=== PATIENT | male | born 1990 | race Two or more races ===

== ENCOUNTER 2017-06-02 11:14 | Emergency (ER) | payer OTHER ==
[~2017-06-02] VITALS: Ht 172.7 cm; Wt 81.6 kg
[2017-06-02 12:00] VITALS: BP 131/74
[2017-06-02 12:08] VITALS: BP 132/88
--- NOTE | 2017-06-04 06:59 | Emergency Room Report ---
History of Present Illness General Chief Complaint: General Complaint Source: Patient Present Illness HPI 26-year-old male presents ED for evaluation. Patient states that there is irritation to his penis times one day. Patient states he put toothpaste on to "clean it" because it was dirty. patient notes some redness and irritation. Denies pain. Denies dysuria or discharge. Patient also complaining of pain to his left ankle. States he twisted his ankle a few days ago. States he had an x -ray done which was negative and another hospital. Patient is able to bear weight but notes pain. Denies received Jas wrap or crutches he claims. Pain is a 5/10, throbbing, nonradiating. Worse with walking. Patient also complaining of muscle aches diffusely. Patient is taking Zyprexa and states he' s had the muscle aches since starting the medication some time ago. No other aggravating relieving factors. Denies any other system symptoms Allergies: Coded Allergies: No Known Allergies (Unverified , 06/02/17) Patient History Past Medical History: psych hx Past Surgical History: none Pertinent Family History: none Social History: Denies: smoking, alcohol use, drug use Immunizations: UTD Reviewed Nursing Documentation: PMH: Agreed, PSxH: Agreed Nursing Documentation-PMH Past Medical History: No History, Except For History Of Psychiatric Problem: Yes - BIPOLAR, SCHEZOPHERINIA Review of Systems All Other Systems: negative except mentioned in HPI Physical Exam Vital Signs Date Time Temp Pulse Resp B/P (MAP) Pulse Ox O2 Delivery O2 Flow Rate FiO2 06/02/17 11:30 97.5 65 20 131/74 98 Room Air Sp02 EP Interpretation: reviewed, normal General Appearance: no apparent distress, alert, GCS 15, non-toxic Head: normocephalic, atraumatic Eyes: bilateral eye normal inspection, bilateral eye PERRL ENT: hearing grossly normal, normal pharynx, no angioedema, normal voice Neck: full range of motion, supple/symm/no masses Respiratory: chest non-tender, lungs clear, normal breath sounds, speaking full sentences Cardiovascular #1: regular rate, rhythm, no edema Cardiovascular #2: 2+ carotid (R), 2+ carotid (L), 2+ radial (R), 2+ radial (L) , 2+ dorsalis pedis (R), 2+ dorsalis pedis (L) Gastrointestinal: normal bowel sounds, non tender, soft, non-distended, no guarding, no rebound Rectal: deferred Genitourinary: no CVA tenderness, other - small area of erythema to head of penis. no induration. no discharge Musculoskeletal: back normal, gait/station normal, normal range of motion, tender - L ankle Neurologic: alert, oriented x3, responsive, motor strength/tone normal, sensory intact, speech normal Psychiatric: judgement/insight normal, memory normal, mood/affect normal, no suicidal/homicidal ideation Reflexes: 3+ bicep (R), 3+ bicep (L), 3+ tricep (R), 3+ tricep (L), 3+ knee (R) , 3+ knee (L) Skin: normal color, no rash, warm/dry, well hydrated Lymphatic: no adenopathy Procedures Splinting Splinting : Consent: Verbal Pre-Made Type: JAS wrap - L ankle Pre-Proc Neuro Vasc Exam: normal Post-Proc Neuro Vasc Exam: normal Patient Tolerated: Well Complications: None Medical Decision Making Diagnostic Impression: Primary Impression: Ankle sprain Qualified Codes: S93.402A - Sprain of unspecified ligament of left ankle, initial encounter Additional Impression: Adverse reaction to drug Qualified Codes: T88.7XXA - Unspecified adverse effect of drug or medicament, initial encounter ER Course Hospital Course 26 yo M presents to ED c/o L ankle pain. c/o penile irritation. c/o muscle aches Differential diagnoses include: Fracture, dislocation, sprain, contusion Clinical course Patient placed on stretcher. After initial history , physical exam reveals a young male in no acute distress. There is small area of erythema to the head of the penis. However there is no induration or discharge. I explained to the patient that toothpaste is an irritant to mucosal surfaces. Symptoms should resolve by morning the retained. No indication for treatment at this time Patient is diffuse muscle aches which could be likely related to the Zyprexa. I explained to the patient that he needs to followup with a psychiatrist for dose adjustment versus new medication. Patient states understanding and will followup with his psychiatrist I offered x-rays of the ankle for the patient. Patient declines x-ray stating he or he had x-rays done. Only requesting an Jas wrap which we provided Diagnosis - ankle sprain, adverse reaction to medication Stable and discharged to home. apply ice, keep elevated. weight bear as tolerated. Followup with PMD/psychiatry. Return to ED if symptoms recur or worsen Last Vital Signs Date Time Temp Pulse Resp B/P (MAP) Pulse Ox O2 Delivery O2 Flow Rate FiO2 06/02/17 12:08 88 16 132/88 99 06/02/17 12:00 97.5 Room Air Status: improved Disposition: HOME, SELF-CARE Condition: Stable Patient Instructions: Ankle Sprain, Akmk-hs-Oame CHADWICK EVERETT M.D. Jun 04, 2017 06:59
== END 2017-06-02 12:08 | disposition home or self-care (01) ==
LOC: EMR 11:50
DX: S93.402A Sprain of unspecified ligament of left ankle, initial encounter (principal); X58.XXXA Exposure to other specified factors, initial encounter; Y93.9 Activity, unspecified; Y99.9 Unspecified external cause status; T50.905A Adverse effect of unspecified drugs, medicaments and biological substances, initial encounter; N48.89 Other specified disorders of penis
CPT/HCPCS: 99282